=== PATIENT | male | born 1985 | race Caucasian/White ===

== ENCOUNTER 2018-04-25 17:24 | Inpatient (IN) | payer OTHER ==
[~2018-04-25] VITALS: Ht 175.3 cm; Wt 72.6 kg
--- NOTE | 2018-04-25 19:30 | NUR ---
PRE ADMISSION NOTE Pt is a 32 y/o male seen at intake. Pt is A&O x 4 and is ambulatory with steady gait. Vitals: BP 126/82, HR 88, 02 98%, T 98.5, RR 16, and pain 0/10. Pt reports using Oxycodone for 1 year, last used on 04/19/18, Xanax 2 mg for 2.5 weeks, Kratom for 2.5 weeks and took methadone once today. Pt reports he was still experiencing S/S of withdrawal, so he took methadone to help his S/S. Pt is allergic to penicillins and shellfish. Pt reports PMH of bipolar disorder and depression, denies taking any home medications. Explained to pt unit rules and policies and that any contraband will be disposed. Will continue care of patient upon arrival on unit.
[2018-04-25 20:00] VITALS: BP 104/79
[2018-04-25] MEDS ORDERED: HYDROXYZINE PAMOATE 25 MG CAPSULE PO PRN (20:45)
[2018-04-25] MEDS ORDERED: MAGNESIUM HYDROXIDE 30 ML LIQUID UDC PO PRN (20:45)
[2018-04-25] MEDS ORDERED: MIRALAX 17 GM POWD.PACK PO PRN (20:45)
[2018-04-25] MEDS ORDERED: ONDANSETRON ODT 4 MG TAB.RAPDIS SL PRN (20:45)
[2018-04-25] MEDS ORDERED: CLONIDINE HCL 0.1 MG TABLET PO PRN (20:45)
[2018-04-25] MEDS ORDERED: diphenhydrAMINE 50 MG CAPSULE PO PRN (20:45)
[2018-04-25] MEDS ORDERED: LOPERAMIDE HCL 2 MG CAPSULE PO PRN ×2 (20:45)
[2018-04-25] MEDS ORDERED: ACETAMINOPHEN 325 MG TABLET PO PRN (20:45)
[2018-04-25] MEDS ORDERED: MAG HYDROX/AL HYDROX/SIMETH 30 ML LIQUID UDC PO PRN (20:45)
[2018-04-25] MEDS ORDERED: ONDANSETRON 4 MG/2 ML VIAL IM PRN (20:45)
[2018-04-25] MEDS ORDERED: 4 DAY TAPER BUPRENORPHINE -SERENITY PROTOCOL SL PRN (20:45)
[2018-04-25] MEDS ORDERED: DICYCLOMINE HCL 20 MG TABLET PO PRN (20:45)
[2018-04-25] MEDS ORDERED: BUPRENORPHINE HCL 2 MG TAB.SUBL SL PRN (20:45)
[2018-04-25 21:30] LABS: *AMPHETAMINE, URINE NEGATIVE (NEGATIVE); *BARBITURATE, URINE NEGATIVE (NEGATIVE); *CANNABINOID, URINE POSITIVE (NEGATIVE); *COCCAINE, URINE NEGATIVE (NEGATIVE); *OPIATE, URINE POSITIVE (NEGATIVE); *PHENCYCLIDINE SCREEN,URINE NEGATIVE (NEGATIVE)
[2018-04-25] MEDS ORDERED: DIAZEPAM 5 MG TABLET PO PRN (21:30)
[2018-04-25] MEDS ORDERED: DIAZEPAM 10 MG TABLET PO PRN ×2 (21:30)
[2018-04-25] MEDS ORDERED: 3 DAY TAPER OF VALIUM-SERENITY PROTOCOL PO PRN (21:30)
[2018-04-25 21:47] LABS: BASOPHILS # (AUTO) 0.1 K/uL (0.0-8.0); BASOPHILS % (AUTO) 1.1 % (0.0-2.0); EOSINOPHILS # (AUTO) 0.3 K/uL (0.0-0.7); EOSINOPHILS % (AUTO) 4.3 % (0.0-7.0); HEMATOCRIT 39.8 % (36.7-47.1); HEMOGLOBIN 12.8 g/dL (12.5-16.3); LYMPHOCYTES # (AUTO) 3.2 K/uL (20.0-40.0); LYMPHOCYTES % (AUTO) 41.2 % (20.5-51.5); MEAN CORPUSCULAR HEMOGLOBIN 24.7 uug (23.8-33.4); MEAN CORPUSCULAR HGB CONC 32 g/dL (32.5-36.3); MONOCYTES # (AUTO) 0.4 K/uL (2.0-10.0); MONOCYTES % (AUTO) 5.3 % (0.0-11.0); NEUTROPHILS # (AUTO) 3.7 K/uL (1.8-8.9); NEUTROPHILS % (AUTO) 48.1 % (38.5-71.5); PLATELET COUNT (AUTO) 215 K/uL (152-348); RED BLOOD CELL COUNT(AUTO) 5.16 MIL/uL (4.06-5.63); WHITE BLOOD COUNT (AUTO) 7.7 K/uL (3.6-10.2)
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
[2018-04-25 22:02] LABS: ETHANOL < 3 MG/DL (0-0)
[2018-04-25 22:06] LABS: ALANINE AMINOTRANSFERASE 17 U/L (16-63); ALKALINE PHOSPHATASE 64 U/L (50-136); AMYLASE 33 U/L (25-115); ASPARTATE AMINOTRANSFERASE 14 U/L (15-37); BILIRUBIN,TOTAL 0.3 mg/dL (0.2-1.0); CARBON DIOXIDE 31 mmol/L (21-32); CHLORIDE 103 mmol/L (98-107); CREATININE 1.1 mg/dL (0.6-1.3); GLUCOSE 86 mg/dL (74-106); LIPASE 149 U/L (73-393); MAGNESIUM 1.9 mg/dL (1.8-2.4); POTASSIUM 4.4 mmol/L (3.5-5.1); UREA NITROGEN, BLOOD 7 mg/dL (7-18)
[2018-04-25 22:16] LABS: THYROID STIMULATING HORMONE 2.065 mIU/mL (0.358-3.740)
--- NOTE | 2018-04-25 23:45 | NUR ---
CIWA 13 Patient has a current CIWA score of 13. Patient reports headache 6/10, anxiety, agitation, and restlessness. SN to administer PRN medications as ordered.
[2018-04-25] MEDS: IBUPROFEN 600 MG TABLET PO PRN (23:47)
--- NOTE | 2018-04-25 23:47 | NUR ---
PRN VALIUM, VISTARIL, & MOTRIN Patient reports headache 6/10 on pain scale; PRN Motrin 600mg given PO. Patient reports anxiety, agitation, restlessness, and verbalized difficulty sleeping, "especially since I'm in a new environment." Current CIWA 13; PRN Valium 10mg given PO for CIWA 9-15. PRN Vistaril 50mg given PO. Safety measures in place, call light within reach. Will monitor for effectiveness.
[2018-04-26] VITALS: BP 110/67
--- NOTE | 2018-04-26 04:00 | NUR ---
COWS & CIWA DEFERRED COWS and CIWA deferred at this time due to patient sleeping; to be assessed while patient is awake. Respirations even and unlabored. Safety measures in place, side rail up x1, bed locked in low position, call light within reach. Will continue to monitor.
--- NOTE | 2018-04-26 07:30 | NUR ---
END OF SHIFT Patient is a 32-year-old male admitted on 04/25/18 benzodiazepine and opiate withdrawal. Patient will be seen by MD for taper orders. Patient has PRN medications available for signs and symptoms of withdrawal. Patient was given PRN Valium 10mg for CIWA 9-15, PRN Vistaril 50mg for anxiety, and PRN Motrin 600mg for headache; all PRNs were noted to be effective. Patient slept for 5 hours, total intake of 1,000mL, void x2, stool x0. Patient is on fall and seizure precautions, with no history of seizure. Safety measures in place, patient continues to keep one side rails up, bed locked in low position, call light within reach. Patient was provided benefits and risks of not keeping side rails up; patient verbalized understanding to instructions. Will endorse to day shift.
[2018-04-26 08:00] VITALS: BP 90/60
--- NOTE | 2018-04-26 08:07 | NUR ---
START OF SHIFT: Received Pt A/O X 4. He presents with anxious mood and congruent affect. He denies S/I and H/I. He reports anxiety,restlessness and irritability. CIWA 11 COWS 5. He refused Subutex and states he feels like the Methadone is still in his system and doesn't feel he needs the Subutex yet.Valium given as ordered. Educated Pt on Subutex. Pt expressed verbal understanding of education. Encouraged increased fluids and rest today. PPD planted to [facility]. Will continue to monitor and manage s/s of w/d.
[2018-04-26] MEDS ORDERED: TUBERCULIN,PURIF.PROT.DERIV. 5 TU/0.1 ML TEST ID ONE (09:00)
[2018-04-26] MEDS: BUPRENORPHINE HCL 2 MG TAB.SUBL SL SCH ×3 (09:00→21:00)
[2018-04-26] MEDS: DIAZEPAM 10 MG TABLET PO SCH ×2 (09:33→20:22)
[2018-04-26 12:00] VITALS: BP 113/66
--- NOTE | 2018-04-26 12:05 | NUR ---
COWS 7 CIWA 11 He reports mild body aches, anxiety, sweats and irritability.
--- NOTE | 2018-04-26 12:12 | NUR ---
Therapist prompted client to attend all group therapy sessions.
[2018-04-26 16:00] VITALS: BP 123/75
--- NOTE | 2018-04-26 18:26 | NUR ---
END OF SHIFT: Pt stayed in room and in bed most of shift. He reports irritability,anxiety and restlessness but refused Subutex and states he was not feeling sick enough from opiate withdrawal to start Subutex. Valium administered as ordered to manage s/s of w/d. COWS 7 CIWA 9. wants COWS 12 before Subutex is administered. He has a poor appetite. Will pass shift report to oncoming night nurse.
--- NOTE | 2018-04-26 19:45 | NUR ---
Start of shift note Received report from day shift nurse. Patient is a 32 year old male admitted for Benzo and Opiate withdrawal. Patient is on 4 day Subutex and 3 day Valium taper. Patient did not received Subutex , per patient he does not need Subutex during the day. Patient did not require PRN medication. Last COWS 7 and CIWA 9. Patient alert and oriented x 4. Patient presents with flat affect and blunt. Safety measures in place. Call light in reach. Will continue to monitor
[2018-04-26 20:00] VITALS: BP 117/69
--- NOTE | 2018-04-26 20:00 | NUR ---
COWS and CIWA assessment Patient presents with anxiety, sweating, chills, runny nose, tremors, restless legs and muscle aches. COWS 9 and CIWA 10.
[2018-04-26] MEDS: METHOCARBAMOL 750 MG TABLET PO PRN (20:22)
--- NOTE | 2018-04-26 20:22 | NUR ---
PRN Robaxin administration Patient c/o muscle aches. Will monitor for effectiveness
[2018-04-26] MEDS: TRAZODONE 50 MG TABLET PO PRN (21:00)
--- NOTE | 2018-04-26 21:00 | NUR ---
Subutex held Subutex held , COWS 9 . Patient states he does not need it a this time.
--- NOTE | 2018-04-26 21:00 | NUR ---
PRN Trazadone administration Patient requests for sleep aid. Will monitor for effectiveness
--- NOTE | 2018-04-26 21:22 | NUR ---
PRN Robaxin re-assessment Patient states Robaxin helpful and effective. Pain lessened
--- NOTE | 2018-04-26 23:00 | NUR ---
PRN Trazadone re-assessment Patient lying in bed with eyes closed. Respiration even and unlabored. Will continue to monitor.
[2018-04-27] VITALS: BP 112/70
--- NOTE | 2018-04-27 | NUR ---
COWS and CIWA deferred Patient lying in bed with eyes closed. Respiration even and unlabored. Will continue to monitor
[2018-04-27 04:00] VITALS: BP 102/64
--- NOTE | 2018-04-27 04:00 | NUR ---
COWS and CIWA deferred Patient lying in bed with eyes closed. Respiration even and unlabored. Will continue to monitor
[2018-04-27 04:08] LABS: HEPATITIS B SURFACE AG Negative (Negative)
--- NOTE | 2018-04-27 07:16 | NUR ---
End of shift note Patient slept 7 hours. Fluid intake 325 ml. Voided x 1. BM x 1 . Patient presented with flat affect, depressed mood, anxiety, sweating, chills, runny nose, tremors, restless legs and muscle aches. Scheduled medication and taper given as ordered, tolerated well and no adverse reaction. PRN Robaxin and Trazadone given. Subutex held. COWS 9. Patient states he does not need it at this time. Safety measures in place. Call light in reach. Will continue to monitor. Last COWS 10 and CIWA 11.
[2018-04-27 08:00] VITALS: BP 105/64
--- NOTE | 2018-04-27 08:00 | NUR ---
Start of Shift Notes/COWS/CIWA Assessment: Endorsement received from night nurse. Patient is a 32 year old male admitted for BZO/Opiate withdrawal who was placed on a 4-day Subutex and 3-day Valium taper as ordered. No adverse reactions noted. Per night report, patient was given PRN Trazodone, and Robaxin during the night. Last COWS 10, CIWA 11. Slept for 7 hours. Upon assessment, patient was seen in bed. Alert and oriented x 4. Denies S/I or H/I noted. No AV hallucinations noted. He appears disheveled with dark circles under eyes, room was odorous with garbage around the room. Encouraged to maintain personal hygiene and space. COWS 7/CIWA 14, patient presented with gross tremors, anxiety, agitation, and intermittent perspiration. Educated patient on his current plan of care for the day and his medication regimen. Encouraged oral fluid intake and encouraged group participation to learn new skills to prevent relapse. Will continue to monitor and offer support. All needs met and attended.
[2018-04-27] MEDS: DIAZEPAM 5 MG TABLET PO SCH ×3 (08:42→20:37)
--- NOTE | 2018-04-27 08:50 | NUR ---
Therapist prompted client to attend group therapy.
[2018-04-27] MEDS ORDERED: BUPRENORPHINE HCL 2 MG TAB.SUBL SL SCH (09:00)
--- NOTE | 2018-04-27 09:00 | NUR ---
Subutex 4 mg not administered: COWS 7, patient refused Subutex 4 mg stating "I'm still not ready to take Subutex I don't want to send myself into precipitated withdrawals." Reminded patient to let nurse know immediately once he is ready. Education provided. Will continue to monitor closely.
--- NOTE | 2018-04-27 09:50 | NUR ---
Therapist prompted client to attend all group therapy sessions.
[2018-04-27 12:00] VITALS: BP 123/75
--- NOTE | 2018-04-27 12:14 | NUR ---
COWS/CIWA Assessment: COWS 5/CIWA 12, patient presents with gross tremors, increased anxiety, agitation, restlessness, unable to keep still, with worried facial expression and generalized discomfort. Will continue to monitor and medicate the patient.
[2018-04-27] MEDS: BUPRENORPHINE HCL 2 MG TAB.SUBL SL SCH ×2 (14:10→21:00)
--- NOTE | 2018-04-27 15:30 | NUR ---
Subutex 4mg SL not administered: Patient refused to take SUbutex 4 mg SL as ordered due to fear of precipitated withdrawals. COWS 5. Education provided. Patient insisted on speaking with MD on not taking it. Offered 3x. Still refused.
[2018-04-27 16:00] VITALS: BP 107/67
--- NOTE | 2018-04-27 16:03 | NUR ---
COWS/CIWA Assessment: COWS 5/CIWA 11, patient continues to present with gross tremors, increased anxiety, agitation, tolerable bone/joint aches and restlessness. Will continue with current detox meds as ordered.
--- NOTE | 2018-04-27 19:17 | NUR ---
End of Shift Notes: Patient continues to be on 4-day Subutex and 3-day Valium as ordered. No adverse reactions noted. VS monitored closely. No significant abnormalities noted. Withdrawal symptoms were closely monitored. Initial COWS 7/CIWA 14, patient presented with gross tremors, intermittent perspiration, anxiety, agitation, anhedonia, guarded and restricted mood and generalized discomfort. Last COWS 5/CIWA 11. Patient states Valium has been effective in reducing his withdrawal symptoms. Patient refused to take Subutex today fearing precipitated withdrawals. MD aware. Reassurance provided. Participated in group and activities despite her withdrawal symptoms. All needs met and attended. Will continue to monitor.
--- NOTE | 2018-04-27 19:30 | NUR ---
Start of shift note Received report from day shift nurse. Patient is a 32 year old male admitted for Benzo/opiate withdrawal . Patient on Valium and Subutex taper. Patient did not receive Subutex and refusing due to fear of precipitated withdrawals. Patient did not require PRN medication. Last COWS 5 and CIWA 11. Patient presents with flat affect, unshaven, depressed mood, worried, anxious, restless, restless legs, headache, myalgia and intermittent perspiration. Safety measures in place. Call light in reach. Will continue to monitor
[2018-04-27 20:00] VITALS: BP_SYST 102; BP_SYST 123; BP_DIAS 69; BP_DIAS 75
--- NOTE | 2018-04-27 20:00 | NUR ---
COWS and CIWA assessment Patient anxious, restless, restless legs, headache, myalgia and intermittent perspiration. COWS 6 and CIWA 9.
[2018-04-27] MEDS: IBUPROFEN 600 MG TABLET PO PRN (20:37)
[2018-04-27] MEDS: METHOCARBAMOL 750 MG TABLET PO PRN (20:37)
[2018-04-27] MEDS: TRAZODONE 50 MG TABLET PO PRN (20:37)
--- NOTE | 2018-04-27 20:37 | NUR ---
PN Robaxin, Motrin and Trazadone administration Patient requests sleep aid, c/o body aches and headache . Will monitor for effectiveness
--- NOTE | 2018-04-27 22:00 | NUR ---
PRN Trazadone, Robaxin and Motrin re-assessment Patient lying in bed with eyes closed. Respiration even and unlabored. No facial grimacing. Will continue to monitor.
[2018-04-28] VITALS: BP 100/62
--- NOTE | 2018-04-28 | NUR ---
COWS and CIWA deferred Patient lying in bed with eyes closed. Respiration even and unlabored. Will continue to monitor.
[2018-04-28 04:00] VITALS: BP 104/76
--- NOTE | 2018-04-28 04:00 | NUR ---
COWS and CIWA deferred Patient lying in bed with eyes closed. Respiration even and unlabored. No facial grimacing. Will continue to monitor.
--- NOTE | 2018-04-28 07:14 | NUR ---
End of shift note Patient slept 8 hours. Fluid intake 1,000 ml. Voided x 1. BM x 1. Patient presented with falt affect, depressed mood, worried, unshaven, anxious, restless, restless legs, headache, myalgia and intermittent perspiration. Patient was given Robaxin, Motrin and Trazadone. Safety measures in place. Call light in reach. Will continue to monitor . Last COWS 6 and CIWA 9.
--- NOTE | 2018-04-28 07:15 | NUR ---
Start Of Shift Report received from restaurant shift leader nurse. Patient is a 32 year old male admitted for Benzo/opiate withdrawal . Per restaurant shift leader nurse pt's last CIWA was 9 and COWS was a 6. Pt is continues his Valium and Subutex tapers. Upon start of shift pt noted laying in his bed with his eyes closed resting, breathing even and unlabored. Pt's room appears unorganized and messy, pt has water, soda bottles and candy wraps thrown around the room. Pt appears anxious, sweaty and flushed. During assessment, pt is AOx4. Lung sounds clear bilaterally. Radial pulse is regular and non-bounding. Abdomen soft and non-tender. Pt's skin is warm and intact. Pt denies any pain at the moment. Encouraged pt to drink plenty of fluids to keep hydrated and help the detox process. Bed in lowest position. Side rails up x2. Call light functioning and within reach. All needs attended and met. Will continue to monitor.
[2018-04-28 08:00] VITALS: BP 109/79
--- NOTE | 2018-04-28 08:00 | NUR ---
COWS and CIWA assessment COWS 7 CIWA 11 Pt presented with sweats, flushed face, anxiety some agitation and yawning, educated pt on relaxation techniques, pt verbalized understanding.
[2018-04-28] MEDS ORDERED: BUPRENORPHINE HCL 2 MG TAB.SUBL SL SCH (09:00)
--- NOTE | 2018-04-28 09:00 | NUR ---
Medication refusal Pt refused to take his Subutex, educated pt on risks and benefits x3 pt verbalized understanding but continued to refuse stating "I don't need it i feel fine without it" made aware will continue to monitor.
[2018-04-28] MEDS: DIAZEPAM 5 MG TABLET PO SCH ×2 (09:08→21:22)
[2018-04-28 12:00] VITALS: BP 100/76
--- NOTE | 2018-04-28 12:00 | NUR ---
COWS and CIWA assessment Patient anxious, restless, restless legs, headache, myalgia and intermittent perspiration. COWS 5 and CIWA 8.
--- NOTE | 2018-04-28 12:20 | NUR ---
Therapist prompted client to attend all group therapy sessions.
[2018-04-28 16:00] VITALS: BP 105/76
--- NOTE | 2018-04-28 19:00 | NUR ---
End of shift Report given to training designer nurse plan of care followed vital signs monitored closely Q4H. Withdrawal symptoms were closely monitored, medication given as scheduled. Initial CIWA 11 COWS 7. Pt encouraged adequate PO fluid intake as tolerated. Pt presented with sweats, flushed face, anxiety some agitation and yawning during the day. Pt received his scheduled taper medication as ordered pt refused to take Subutex in the AM but agreed to take the Valium. Pt did not receive any PRN medications during the day Last CIWA 6 COWS 5. Pt reported that his taper medications have been working well at controlling his withdrawal symptoms. Pt ate all of his meals, pt attended all groups and activities to learn new coping skills to prevent relapse. Pt denied any SI/HI. All safety measures in place, bed in lowest locked position, call light within reach. All needs met and attended.
--- NOTE | 2018-04-28 19:30 | NUR ---
START OF SHIFT Pt is a 32 y/o male admitted on 04/25/18 for benzo and opiate withdrawal. Pt to finish a 3 day Valium taper today, tolerating well. Pt has been refusing the 4 day Subutex taper. MD and charge nurse aware. Last COWS 5 CIWA 6. No PRNs administered during day shift. Upon assessment Pt was found in his room laying in bed watching TV. Pt presented with anxiety, agitation, flushed skin, and fidgety. Medications due. Safety measures in place. Call light within reach. Will continue to monitor.
[2018-04-28 20:00] VITALS: BP 120/77
--- NOTE | 2018-04-28 20:00 | NUR ---
COWS 4 / CIWA 5 Pt presented with generalized body pain, anxiety and agitation. No other complaints made by the Pt. Safety measures in place. Call light within reach. Will continue to monitor.
[2018-04-28] MEDS: METHOCARBAMOL 750 MG TABLET PO PRN (21:22)
[2018-04-28] MEDS: TRAZODONE 50 MG TABLET PO PRN (21:22)
--- NOTE | 2018-04-28 21:22 | NUR ---
PRN TRAZODONE AND ROBAXIN ADMINISTRATION. Pt complains of generalized body aches 6/10 and difficulty falling and staying asleep. PRN medication were administered per order. Safety measures in place. Call light within reach. Will continue to monitor.
--- NOTE | 2018-04-28 22:22 | NUR ---
PRN TRAZODONE AND ROBAXIN REASSESSMENT Pt stated generalized body pain is 2/10 and he is getting sleepy and is going to go to sleep soon. PRN medication noted as effective. Safety measures in place. Call light within reach. Will continue to monitor.
--- NOTE | 2018-04-29 | NUR ---
COWS/CIWA DEFERRED AND VITAL SIGNS REFUSED Patient is noted in bed with eyes closed. Breathing even and non labored. COWS/CIWA and vital signs not able to be completed per order. Safety measures in place. Call light within reach. Will continue to monitor.
--- NOTE | 2018-04-29 07:22 | NUR ---
END OF SHIFT Pt is a 32 y/o male admitted on 04/25/18 for benzo and opiate withdrawal. Pt finished a 3 day Valium taper, tolerated well. Pt refused the 4 day Subutex taper. MD and charge nurse aware. Pt presented with anxiety, agitation, flushed skin, and fidgety. PRN Trazodone and Robaxin administered, effective with S/S of withdrawal as verbalized per Pt. Last COWS 4 CIWA 5 . Pt slept 8 hours. Intake 750 ml, void x 5, stool x 2. Safety measures in place. Call light within reach. Pt's needs have been met. Endorsed to day shift nurse.
[2018-04-29 08:00] VITALS: BP 114/70
--- NOTE | 2018-04-29 08:00 | NUR ---
Start of Shift Notes/COWS/CIWA Assessment: Received endorsement from night nurse. Patient is a 32 year old male admitted for BZO/opiate withdrawal who was placed on a 3-day Valium and 4-day Subutex taper. Patient completed taper and will under close observation for the next 24 hours until discharge. Per night report, patient was given PRN Trazodone and Robaxin during the night. Last COWS 4/CIWA 5. Patient is seen in his room at this time. Laying in bed. Appears disheveled. Dark circles under eyes. Verbalizes "I've been tossing and turning all night." He complains of difficulty sleeping and difficulty concentrating due to anxiety. COWS 6/CIWA 8 upon this assessment, patient presented with increased anxiety, intermittent perspiration, gross tremors and restlessness. Educated patient on his current plan of care for the day and his medication regimen. Encouraged oral fluid intake and encouraged group participation to learn new skills to prevent relapse. All needs met and attended. Will continue to monitor closely and provide support.
[2018-04-29] MEDS ORDERED: BUPRENORPHINE HCL 2 MG TAB.SUBL SL SCH (09:00)
[2018-04-29 12:00] VITALS: BP 105/69
--- NOTE | 2018-04-29 12:27 | NUR ---
COWS/CIWA Assessment: COWS 5/CIWA 8, patient continues to present with anxiety, tremors, intermittent perspiration, restlessness, and generalized discomfort. Oral fluids encouraged. Offered PRNs. Will continue to monitor.
[2018-04-29] MEDS ORDERED: CLON0.1T14 PO (13:28)
[2018-04-29] MEDS ORDERED: METH-406 PO (13:28)
[2018-04-29] MEDS: IBUPROFEN 600 MG TABLET PO PRN (14:33)
--- NOTE | 2018-04-29 14:33 | NUR ---
Ibuprofen 400 mg PO given: Patient noted with complain of headache 11/17. Non-pharmacological interventions provide but ineffective. Medicated patient with Ibuprofen 400 mg PO as ordered. Will monitor for effectiveness.
--- NOTE | 2018-04-29 15:33 | NUR ---
Re-assessment: Ibuprofen Patient verbalizes relief from headache. He rates his pain as a 0 out of 10 at this time. PRN Ibuprofen was effective.
[2018-04-29 16:00] VITALS: BP 110/72
--- NOTE | 2018-04-29 16:44 | NUR ---
COWS/CIWA Assessment: COWS 4/CIWA 7, patient continues to present with anxiety, agitation, intermittent perspiration and headache. Offered PRNs. Oral fluids encouraged. Will continue to monitor.
--- NOTE | 2018-04-29 19:06 | NUR ---
End of Shift Notes: Patient completed his taper and was under close observation all throughout the day. VS monitored closely. No significant abnormalities noted. Withdrawal symptoms were closely monitored. Initial COWS 6/CIWA 8, patient presented with intermittent perspiration, gross tremors, anxiety, agitation, difficulty concentrating, fatigue, malaise, and insomnia. Last COWS 4/CIWA 7. Patient verbalizes detox meds has been effective in reducing his withdrawal symptoms. PRN Motrin given at 1433 for headache with help. Participated in group and activities despite his withdrawal symptoms. Appetite fair. All needs met and attended. Will continue to monitor closely.
--- NOTE | 2018-04-29 19:30 | NUR ---
Start of Shift Patient Received. Patient is noted in his room awake, alert and verbally responsive. Breathing even and non labored. Per endorsement, patient continues on 4 day Subutex and 3 day Valium taper. Patient is set for discharge tomorrow 04/30/18. Patient did not receive any PRN medications. Last noted CIWA 7 and COWS 4. All needs attended to promptly. Will continue plan of care as ordered.
[2018-04-29 20:20] VITALS: BP 136/87
[2018-04-29] MEDS: TRAZODONE 50 MG TABLET PO PRN (20:21)
[2018-04-29] MEDS: METHOCARBAMOL 750 MG TABLET PO PRN (20:21)
--- NOTE | 2018-04-29 20:23 | NUR ---
PRN Medication Administration Patient is noted verbalizing inability of falling asleep due to restless legs. PRN Robaxin and Trazodone administered. Will continue to monitor.
--- NOTE | 2018-04-29 21:30 | NUR ---
PRN Medication Administration Patient is noted in bed sleeping. Breathing even and non labored. no signs of restlessness or discomfort noted. PRN Trazodone noted to be effective. Will continue to monitor. Addendum: 04/30/18 at 0046 by ANASTASIA HARRELL LVN PRN Medication Reassessment
--- NOTE | 2018-04-30 00:42 | NUR ---
Vitals Refused/CIWA and COWS Deferred Patient is noted in bed sleeping. Breathing even and non labored. No signs of restlessness or discomfort noted. No facial grimacing noted. Vitals Refused. COWS and CIWA not able to be completed as per order. All needs attended to promptly. Will continue plan of care as ordered.
--- NOTE | 2018-04-30 04:00 | NUR ---
Vitals Refused patient is noted in bed sleeping. Breathing even and non labored. No signs of restlessness or discomfort noted. Patient refused vitals. COWS and CIWA not about to be completed as per order. Will continue to monitor.
--- NOTE | 2018-04-30 07:11 | NUR ---
End of Shift Patient is noted in bed sleeping. Breathing even and non labored. Patient has completed a modified Subutex and modified Valium taper. He is set for discharge today 04/30/18. Patient received PRN Robaxin and Trazodone with medication noted to be effective. Last noted COWS 6 and CIWA 7. Patient noted to sleep a total of 8 hours. All needs attended to promptly. Will continue plan of care as ordered.
[2018-04-30 08:00] VITALS: BP 122/71
--- NOTE | 2018-04-30 08:00 | NUR ---
Start of Shift Notes/COWS/CIWA Assessment: Received endorsement from night nurse. Patient is a 32 year old male admitted for BZO/opiate withdrawal who was placed on a 3-day Valium and 4-day Subutex taper. Patient completed taper and will be discharging today. Per night report, patient was given PRN Trazodone and Robaxin during the night. Last COWS 6/CIWA 7. Slept for 8 hours. Patient is seen in his room at this time. Laying in bed. Appears disheveled. He complains of difficulty sleeping and difficulty concentrating due to anxiety. COWS 4/CIWA 4 upon this assessment, patient presented with increased anxiety, intermittent perspiration, gross tremors and restlessness. Educated patient on the discharge process. He verbalized good understanding. All needs met and attended.
--- NOTE | 2018-04-30 09:48 | NUR ---
Discharged: COWS 4/CIWA 4. VS stable. Discharge education provided. Patient verbalized good understanding of all teachings. He denies S/I or H/I noted. No AV hallucinations. No complains of pain at this time. [employer] cabinet checked. Cassette checked. All clothing, toiletries and valuables were returned to the patient and placed inside blue and black duffel bag. Escorted off the unit by [employer] and picked up by [employer] [facility] in stable condition.
== END 2018-04-30 09:48 | DRG 895 ==
LOC: SRC 18:56
PROVIDERS: ADMIT Internal Medicine; ATTEND Family Medicine Addiction Medicine
PROC: HZ2ZZZZ Detoxification Services for Substance Abuse Treatment (ICD-10-PCS; principal; 2018-04-25)
PROC: HZ41ZZZ Group Counseling for Substance Abuse Treatment, Behavioral (ICD-10-PCS; 2018-04-26)
PROC: HZ31ZZZ Individual Counseling for Substance Abuse Treatment, Behavioral (ICD-10-PCS; 2018-04-27)
DX: F11.23 Opioid dependence with withdrawal (principal); F13.230 Sedative, hypnotic or anxiolytic dependence with withdrawal, uncomplicated; F41.1 Generalized anxiety disorder; Z87.442 Personal history of urinary calculi; Z91.5 Personal history of self-harm; Z81.3 Family history of other psychoactive substance abuse and dependence; Z81.8 Family history of other mental and behavioral disorders; G47.00 Insomnia, unspecified; F12.90 Cannabis use, unspecified, uncomplicated; F31.9 Bipolar disorder, unspecified
CPT/HCPCS: 36415; 70030-TC; 80307; 80346; 80349; 80361; 83690; 83735; 84443; 85025; 86580; 86592; 86705; 86803; 87340; 87806; G0480